=== PATIENT | male | born 1975 | race Caucasian/White ===

== ENCOUNTER 2021-03-26 01:01 | Inpatient (IN) | payer BC ==
[~2021-03-26] VITALS: Ht 170.2 cm; Wt 99.5 kg
--- NOTE | 2021-03-26 01:31 | NUR ---
REPORT RECIEVED FROM KYM VAZQUEZ
--- NOTE | 2021-03-26 01:33 | NUR ---
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
[2021-03-26] MEDS ORDERED: LORazepam 2 MG/ML, 1ML IVPush ONE (02:00)
[2021-03-26] MEDS ORDERED: ONDANSETRON 2MG/ML, 2ML ONE (02:00)
[2021-03-26] MEDS ORDERED: ONDANSETRON 2MG/ML, 2ML IVPush ONE (02:00)
[2021-03-26] MEDS ORDERED: SODIUM CHLORIDE 0.9% 1,000ML IVBOLUS ONE (02:00)
[2021-03-26] MEDS ORDERED: LORazepam 2 MG/ML, 1ML ONE (02:01)
[2021-03-26 02:11] LABS: BASOPHILS % (AUTO) 0 % (0-1); EOSINOPHILS % (AUTO) 2 % (1-7); LYMPHOCYTES % (AUTO) 31 % (22-44); MEAN CORPUSCULAR HEMOGLOBIN 34.8 pg (27.5-34.5); MEAN CORPUSCULAR HGB CONC 35.3 g/dL (33.2-36.2); MEAN PLATELET VOLUME 6.9 fL (7.4-10.4); MONOCYTES % (AUTO) 14 % (2-9); NEUTROPHILS % (AUTO) 53 % (42-75); PLATELET COUNT 109 x10^3/uL (130-400); RED CELL DISTRIBUTION WIDTH 13.6 % (9.4-14.8)
[2021-03-26 02:17] LABS: MICROSCOPIC NOT IND
--- NOTE | 2021-03-26 02:23 | NUR ---
PT LAYING IN BED WATCHING TV, A/OX4, ALL NEEDS IN REACH, CALL LIGHT IN REACH, NAD, PT HAS NO COMPLAINTS AT THIS TIME
[2021-03-26 02:24] LABS: ALBUMIN 3.2 g/dL (3.4-5.0); ANION GAP 8 mmol/L (5-15); CALCIUM 8.4 mg/dL (8.5-10.1); CHLORIDE 95 mmol/L (98-107)
[2021-03-26 02:30] LABS: ALANINE AMINOTRANSFERASE 38 U/L (12-78); ALKALINE PHOSPHATASE 64 U/L (45-117); BILIRUBIN,TOTAL 0.8 mg/dL (0.2-1.0); CREATININE 1.49 mg/dL (0.7-1.3); TOTAL PROTEIN 6.3 g/dL (6.4-8.2); TROPONIN I < 0.015 ng/mL (0.000-0.045)
[2021-03-26] MEDS ORDERED: NS + 20MEQ KCL 1,000 ML IV SCH (03:00)
[2021-03-26] MEDS ORDERED: NS + 20MEQ KCL 1,000 ML IV ONE (03:07)
[2021-03-26] MEDS ORDERED: DOCUSATE 100 MG CAPSULE PO PRN (04:00)
[2021-03-26] MEDS ORDERED: CHLORDIAZEPOXIDE 25 MG CAPSULE PO PRN ×3 (04:00)
[2021-03-26] MEDS ORDERED: GUAIFENESIN/DM 200-20MG, 10ML UDC PO PRN (04:00)
[2021-03-26] MEDS ORDERED: morphine SULFATE 10 MG/ML, 1ML IVPush PRN (04:00)
[2021-03-26] MEDS ORDERED: ONDANSETRON 2MG/ML, 2ML IVPush PRN (04:00)
[2021-03-26] MEDS ORDERED: LORazepam 2 MG/ML, 1ML IV PRN (04:00)
[2021-03-26] MEDS ORDERED: ENALAPRILAT 1.25 MG/ML, 2ML IVPush PRN (04:00)
[2021-03-26 05:08] VITALS: BP 114/74
[2021-03-26] MEDS ORDERED: METF500T17 PO (05:13)
[2021-03-26] MEDS ORDERED: AMOX-291 PO (05:13)
[2021-03-26] MEDS ORDERED: LISI-170 PO (05:13)
[2021-03-26] MEDS: HEPARIN 5,000 UNITS/ML, 1ML SQ SCH ×3 (05:17→21:29)
[2021-03-26] MEDS: SODIUM CHLORIDE 0.9% 1,000 ML IV SCH ×3 (06:33→21:28)
[2021-03-26] MEDS: PANTOPRAZOLE 40 MG IV IVPush SCH (06:34)
[2021-03-26] MEDS: CHLORDIAZEPOXIDE 10 MG CAPSULE PO PRN ×2 (06:44→10:47)
[2021-03-26 07:25] VITALS: BP 112/77
[2021-03-26] MEDS: MULTIVITAMINS/MINERALS TABLET PO SCH (08:49)
[2021-03-26] MEDS: LISINOPRIL 20 MG TABLET PO SCH (08:49)
[2021-03-26] MEDS: MAGNESIUM CHLORIDE 64 MG TABLET.DR PO SCH ×3 (08:50→21:29)
[2021-03-26] MEDS: AMOXICILLIN 500 MG CAPSULE PO SCH ×2 (08:50→21:30)
[2021-03-26] MEDS: OXYcodone IR 5MG TABLET PO PRN ×3 (11:31→21:29)
[2021-03-26 12:51] VITALS: BP 122/81
[2021-03-26] MEDS: METHOCARBAMOL 500 MG TABLET PO PRN ×2 (14:18→21:29)
[2021-03-26] MEDS ORDERED: metFORMIN 500 MG TABLET ONE (16:48)
[2021-03-26] MEDS: metFORMIN 500 MG TABLET PO SCH (16:54)
[2021-03-26 18:57] VITALS: BP 118/80
[2021-03-27 03:00] VITALS: BP 111/71
[2021-03-27] MEDS: HEPARIN 5,000 UNITS/ML, 1ML SQ SCH ×2 (05:10→12:13)
[2021-03-27 05:20] LABS: BASOPHILS % (AUTO) 0 % (0-1); EOSINOPHILS % (AUTO) 3 % (1-7); LYMPHOCYTES % (AUTO) 38 % (22-44); MEAN CORPUSCULAR HEMOGLOBIN 34.9 pg (27.5-34.5); MEAN CORPUSCULAR HGB CONC 34.6 g/dL (33.2-36.2); MEAN PLATELET VOLUME 6.7 fL (7.4-10.4); MONOCYTES % (AUTO) 15 % (2-9); NEUTROPHILS % (AUTO) 45 % (42-75); PLATELET COUNT 152 x10^3/uL (130-400); RED BLOOD COUNT 3.14 x10^6/uL (4.38-5.82); RED CELL DISTRIBUTION WIDTH 13.4 % (9.4-14.8)
[2021-03-27 05:32] LABS: ALBUMIN 3.2 g/dL (3.4-5.0); ANION GAP 4 mmol/L (5-15); CALCIUM 8.4 mg/dL (8.5-10.1); CHLORIDE 107 mmol/L (98-107)
[2021-03-27 05:36] LABS: ALANINE AMINOTRANSFERASE 45 U/L (12-78); ALKALINE PHOSPHATASE 72 U/L (45-117); BILIRUBIN,TOTAL 0.6 mg/dL (0.2-1.0); CREATININE 1.02 mg/dL (0.7-1.3); TOTAL PROTEIN 6.5 g/dL (6.4-8.2)
[2021-03-27] MEDS: SODIUM CHLORIDE 0.9% 1,000 ML IV SCH ×2 (06:23→13:58)
[2021-03-27 07:17] VITALS: BP 138/90
[2021-03-27] MEDS: PANTOPRAZOLE 40 MG IV IVPush SCH (08:03)
[2021-03-27] MEDS: MAGNESIUM CHLORIDE 64 MG TABLET.DR PO SCH (08:04)
[2021-03-27] MEDS: MULTIVITAMINS/MINERALS TABLET PO SCH (08:05)
[2021-03-27] MEDS: AMOXICILLIN 500 MG CAPSULE PO SCH (08:05)
[2021-03-27] MEDS: LISINOPRIL 20 MG TABLET PO SCH (08:05)
[2021-03-27] MEDS: metFORMIN 500 MG TABLET PO SCH (08:06)
[2021-03-27] MEDS ORDERED: THIAMINE 100 MG in DEXTROSE 5% 50 ML IVPB SCH (09:00)
[2021-03-27] MEDS ORDERED: OXYC5TAB98 PO (09:55)
[2021-03-27] MEDS ORDERED: THIAMINE 100MG TABLET PO SCH (10:00)
[2021-03-27] MEDS: METHOCARBAMOL 500 MG TABLET PO PRN (10:04)
[2021-03-27] MEDS: OXYcodone IR 5MG TABLET PO PRN (10:04)
[2021-03-27 13:57] VITALS: BP 122/83
== END 2021-03-27 14:39 | disposition home or self-care (01) | DRG 438 ==
LOC: ED 01:47 → EDIP 03:08 → 5SO 04:36 → 4WST 09:35
PROVIDERS: ADMIT Internal Medicine; ATTEND Family Medicine
DX: K85.20 Alcohol induced acute pancreatitis without necrosis or infection (principal); N17.0 Acute kidney failure with tubular necrosis; E87.1 Hypo-osmolality and hyponatremia; D53.9 Nutritional anemia, unspecified; D69.6 Thrombocytopenia, unspecified; E11.65 Type 2 diabetes mellitus with hyperglycemia; E66.9 Obesity, unspecified; F10.10 Alcohol abuse, uncomplicated; Y90.9 Presence of alcohol in blood, level not specified; E86.0 Dehydration; E87.6 Hypokalemia; E87.8 Other disorders of electrolyte and fluid balance, not elsewhere classified; I10 Essential (primary) hypertension; Z68.34 Body mass index [BMI] 34.0-34.9, adult; Z80.42 Family history of malignant neoplasm of prostate; Z83.3 Family history of diabetes mellitus; Z79.899 Other long term (current) drug therapy
CPT/HCPCS: 36415; 80053; 80320; 81003; 83036; 83690; 83735; 84100; 84484; 85025; 93005; 96374; 96375; G0378; J1644; J2405; J3411; J3480; C9113; G0480; J2060; J7030